=== PATIENT | female | born 1960 | race Caucasian/White ===

== ENCOUNTER → 2016-08-06 | Day surgery (SDC) | payer MEDICARE, OTHER ==
[~2016-08-06] MED LIST: ALBUTEROL 0.5ML INH; ALPRAZOLAM PO; AMBIEN10 MG PO; ASPIRIN81 M1 PO; BENTYL10 MG DOB; BENTYL10 MG PO; BUSPAR15 MG PO; CIPRO PO; CITALOPRAM HBR40 MG PO; COMBIVENT INH14.7 GM INH; CYMBALTA PO; DETROL LA PO; DICYCLOMINE HCL10 MG PO; DICYCLOMINE HCL20 MG PO; ESTRACE PO; HCTZ PO; HYDRALAZINE HCL50 MG PO; HYDROGESIC 5/501 CAP PO; LIPITOR20 MG PO; LORTAB 5/500 TA1 TA1 PO; LYRICA PO; LYRICA100 MG PO; MEDROL DOSE PACK; MOBIC PO; NEXIUM PO; PERCOCET 5-3251 TAB PO; PHENERGAN25 M1 PO; PHENERGAN25 MG PO; PRAVACHOL PO; PRAVASTATIN SOD20 MG PO; PROMETHAZINE HC25 MG PO; RAMITIDINE; TRAZODONE HCL100 MG PO; TRAZODONE HCL150 MG PO; TRIGLIDE160 M1 PO; Z-PACK; ZANTAC PO; ZOHYDRO ER10 M1 PO
--- NOTE | ~2016-08-06 | OR ---
Unit #: [id number] #: [id number] Patient: KAUSHIK FIELD [id number] [address] [address] [id number] O MR#: [id number] NAME: KAUSHIK FIELD ROOM: Date of Procedure: 08/06/2016 Admission Date: 08/06/2016 Surgeon: Matthias Hudson M.D. : 1960 Attending Physician: Matthias Hudson M.D. Primary Care Physician: French Workman A.P.R.N. OPERATIVE REPORT PREOPERATIVE DIAGNOSES Back pain, radiculopathy, degenerative lumbar disk disease. POSTOPERATIVE DIAGNOSES Back pain, radiculopathy, degenerative lumbar disk disease. PROCEDURE PERFORMED Lumbar epidural steroid injection with intravenous sedation and fluoroscopic guidance for needle localization. INDICATIONS FOR PROCEDURE The patient is a 56-year-old female with back and right lower extremity radicular pain. She has failed to settle with conservative measures. Based on history, pathology, and symptomatology, plan is to trial of epidural steroids. Risks and benefits of all which have been reviewed. DESCRIPTION OF PROCEDURE The patient was placed in a seated position. Standard monitors were applied. 3 mg of Versed were given in divided doses for anxiolysis and sedation, which were adequate. Vital signs remained stable. Sterile prep and drape then of the lumbar area was performed. The skin at the L5 level was localized with 1% lidocaine. An 18-gauge Hustead needle was then advanced via loss of resistance technique and fluoroscopic guidance in toward the epidural space. After confirming proper positioning with fluoroscopy and radiographic contrast, 80 mg of Depo-Medrol and 4 mL of 0.125% bupivacaine were deposited. The patient tolerated the procedure otherwise well and was discharged to the recovery room in stable condition. Dictated by... Kendell Olsen/orquidea TD: 08/06/2016 16:34 JOB #: [id number] Unit #: [id number] #: [id number] Patient: KAUSHIK FIELD OPERATIVE REPORT Page 1 of 1 X Matthias Hudson MD X PROCEDURE OPERATIVE NOTE
== END | disposition home or self-care (01) ==
LOC: CCSC 06:51
DX: M51.16 Intervertebral disc disorders with radiculopathy, lumbar region (principal); J44.9 Chronic obstructive pulmonary disease, unspecified; K21.9 Gastro-esophageal reflux disease without esophagitis; I10 Essential (primary) hypertension
CPT/HCPCS: J1040; J2250

== ENCOUNTER → 2016-08-20 | Day surgery (SDC) | payer MEDICARE, OTHER ==
--- NOTE | ~2016-08-20 | OR ---
Unit #: [id number] #: [id number] Patient: KAUSHIK FIELD [id number] [address] [place], [place] [address] [id number] O MR#: [id number] NAME: KAUSHIK FIELD ROOM: Date of Procedure: 08/20/2016 Admission Date: 08/20/2016 Surgeon: Matthias Hudson M.D. : 1960 Attending Physician: Matthias Hudson M.D. Primary Care Physician: French Workman A.P.R.N. OPERATIVE REPORT PREOPERATIVE DIAGNOSES Degenerative lumbar disk disease with myelopathy, back pain, radiculopathy. POSTOPERATIVE DIAGNOSES Degenerative lumbar disk disease with myelopathy, back pain, radiculopathy. PROCEDURE PERFORMED Lumbar epidural steroid injection with intravenous sedation and fluoroscopic guidance for needle localization. INDICATIONS FOR PROCEDURE The patient is a 56-year-old female with back and right lower extremity radicular type pain. She failed to settle with extensive conservative treatment with physical therapy, medication management, and rehab. She is not a surgical candidate. Good response to epidural steroids. Decision was made to give a trial of this. First injection done 2 weeks ago resulted in some mild to moderate improvement in both her back and leg pain. She still has significant amount of discomfort, so we are going to proceed with a repeat of a second injection today. If this is not give substantial improvement, to hold any further intervention, if she does get better improvement, she will be a candidate for third injection. DESCRIPTION OF PROCEDURE The patient was placed in the seated position. Standard monitors were applied. 3 mg of Versed were given for sedation and anxiolysis, which were adequate. Vital signs remained stable. Sterile prep and drape then of the lumbar area was performed. The skin then at the L4-L5 level was localized with 1% lidocaine. An 18-gauge GameGroundtead needle was then advanced via loss of resistance technique and fluoroscopic guidance in toward the epidural space. After confirming proper positioning with fluoroscopy and radiographic contrast, 80 mg of Depo-Medrol and 4 mL of 0.125% bupivacaine were deposited. The patient tolerated the procedure otherwise well and was discharged to the recovery room in stable condition. Dictated by... Kendell Olsen/orquidea TD: 08/20/2016 23:04 Unit #: [id number] #: [id number] Patient: KAUSHIK FIELD JOB #: [id number] OPERATIVE REPORT Page 1 of 1 X Matthias Hudson MD X PROCEDURE OPERATIVE NOTE
== END | disposition home or self-care (01) ==
LOC: CCSC 07:26
PROVIDERS: Pain Medicine Pain Medicine
PROC: 3E0R3BZ Introduction of Anesthetic Agent into Spinal Canal, Percutaneous Approach (ICD-10-PCS; 2016-08-20)
PROC: 3E0R33Z Introduction of Anti-inflammatory into Spinal Canal, Percutaneous Approach (ICD-10-PCS; principal; 2016-08-20 08:00)
DX: M51.06 Intervertebral disc disorders with myelopathy, lumbar region (principal); M51.16 Intervertebral disc disorders with radiculopathy, lumbar region; J44.9 Chronic obstructive pulmonary disease, unspecified; K21.9 Gastro-esophageal reflux disease without esophagitis; I10 Essential (primary) hypertension; Z79.899 Other long term (current) drug therapy
CPT/HCPCS: J1040; J2250

== ENCOUNTER → 2016-09-03 | Outpatient (CLI) | payer MEDICARE, OTHER ==
--- NOTE | ~2016-09-03 | MY29 ---
[facility] A Service of [facility] RADIOLOGY TEXT RESULTS PATIENT: KAUSHIK FIELD LOCATION: [facility] : 60 UNIT #: [id number] AGE: [address]: French Workman APRN SEX: F ORDER DR: [id number] [facility] [address] [facility]. [place], [place] [address] [id number] O MR#: [id number] Acc #: [id number] NAME: KAUSHIK FIELD : 1960 SEX: F STUDY DATE/TIME: 09/03/2016 8:45 UNIT: [facility] ROOM: STUDY DESCRIPTION: MY LEXUS SCREENING W/ CAD BILAT Attending Physician: French Workman A.P.R.N. Ordering Physician: French Workman A.P.R.N. Primary Care Physician: French Workman A.P.R.N. MEDICAL IMAGING REPORT This report is preliminary unless electronic signature is present EXAM Digital screening mammogram, 09/03/2016 HISTORY 56-year-old woman no risk elevation. Annual screening. COMPARISON Mammograms date to 02/03/2005 with most recent 09/19/2015. FINDINGS Digital imaging of each breast was completed utilizing a two-view examination of each breast in craniocaudal and mediolateral-oblique projections. Review and interpretation of digital mammograms include a second review in conjunction with FDA-approved CAD device. There is a normal parenchymal presentation bilaterally consistent with the patient's age. There are no breast masses imaged and no parenchymal asymmetry is visualized. There are no suspicious microcalcifications and I see no focal architectural disturbance. IMPRESSION Negative screening digital mammogram. One-year followup recommended. Patients over the age of 40 are entered into a reminder system with target due date for the next mammogram. A result letter will also be sent to the patient. BIRADS: 1 Negative ADDENDUM Breast parenchyma is fatty replaced. Dictated by... Michel Dave M.D. [facility] A Service of [facility] RADIOLOGY TEXT RESULTS PATIENT: KAUSHIK FIELD LOCATION: [facility] : 60 UNIT #: [id number] AGE: [address]: French Workman APRN SEX: F ORDER DR: THIS IS AN ELECTRONICALLY VERIFIED REPORT Michel Dave M.D. at 09/03/2016 10:43 AM Adam TD: 09/03/2016 09:58 JOB #: [id number] MEDICAL IMAGING REPORT Page 1 of 1 COPY
== END | disposition home or self-care (01) ==
LOC: CWCC 08:24
DX: Z12.31 Encounter for screening mammogram for malignant neoplasm of breast (principal); R92.8 Other abnormal and inconclusive findings on diagnostic imaging of breast
CPT/HCPCS: G0202

== ENCOUNTER → 2016-09-10 | Day surgery (SDC) | payer MEDICARE, OTHER ==
--- NOTE | ~2016-09-10 | OR ---
Unit #: [id number] #: [id number] Patient: KAUSHIK FIELD [id number] [address] [place], [place] [address] [id number] O MR#: [id number] NAME: KAUSHIK FIELD ROOM: Date of Procedure: 09/10/2016 Admission Date: 09/10/2016 Surgeon: Matthias Hudson M.D. : 1960 Attending Physician: Matthias Hudson M.D. Referring Physician: Matthias Hudson M.D. Primary Care Physician: French Workman A.P.R.N. OPERATIVE REPORT PREOPERATIVE DIAGNOSES Back pain, radiculopathy, degenerative lumbar disk disease. POSTOPERATIVE DIAGNOSES Back pain, radiculopathy, degenerative lumbar disk disease. PROCEDURE PERFORMED Lumbar epidural steroid injection with intravenous sedation and fluoroscopic guidance for needle localization. INDICATIONS FOR PROCEDURE The patient is a 56-year-old female with previously mentioned diagnosis. She had back and right lower extremity radicular pain. She failed to settle with extensive attempts of conservative treatment. Workup demonstrated degenerative changes at L4-L5 and L5-S1 levels. Two epidural steroid injections done over the last month or so. They resolved the right lower extremity pain and most of the center back pain, but she is still having pain in the right side of her back and buttock. Based on her pathology, symptomatology, and available options, we are going to proceed with a repeat epidural steroid injection today. DESCRIPTION OF PROCEDURE The patient was placed in a seated position. Standard monitors were applied. 3 mg of Versed were given for sedation and anxiolysis, which were adequate. Vital signs remained stable. Sterile prep and drape then of lumbar area was performed. The skin then at the L4 level was localized with 1% lidocaine. An 18-gauge imedotead needle was then advanced via loss of resistance technique and fluoroscopic guidance in toward the epidural space. After confirming proper positioning with fluoroscopy and radiographic contrast, 80 mg of Depo-Medrol and 4 mL of 0.125% bupivacaine were deposited. The patient tolerated the procedure otherwise well and was discharged to the recovery room in stable condition end. Dictated by... Matthias Hudson M.D. CASEY/orquidea TD: 09/10/2016 17:42 Unit #: [id number] #: [id number] Patient: KAUSHIK FIELD JOB #: [id number] OPERATIVE REPORT Page 1 of 1 X Matthias Hudson MD X PROCEDURE OPERATIVE NOTE
== END | disposition home or self-care (01) ==
LOC: CCSC 06:48
PROVIDERS: Pain Medicine Pain Medicine
PROC: 3E0S33Z Introduction of Anti-inflammatory into Epidural Space, Percutaneous Approach (ICD-10-PCS; principal; 2016-09-10 08:00)
DX: M51.16 Intervertebral disc disorders with radiculopathy, lumbar region (principal); M51.17 Intervertebral disc disorders with radiculopathy, lumbosacral region; J44.9 Chronic obstructive pulmonary disease, unspecified; K21.9 Gastro-esophageal reflux disease without esophagitis; I10 Essential (primary) hypertension; Z79.899 Other long term (current) drug therapy
CPT/HCPCS: J1040; J2250